=== PATIENT | male | born 1960 | race American Indian/Alaskan Native ===

== ENCOUNTER 2017-11-04 11:39 | Inpatient (IN) | payer MEDICAID ==
[2017-11-04 11:39] VITALS: BMI 38.9
--- NOTE | 2017-11-04 12:28 | C.PDOC ---
History Of Present Illness 57 year old male presents to the ER as a prescreen for heroin detox. Denies any physical complaints at this time. Time Seen by Provider: 11/04/17 12:13 Chief Complaint (Nursing): Substance Abuse History Per: Patient History/Exam Limitations: no limitations Suicide/Self Injury Attempted (Context): None Modifying Factor(s): Other (Heroin) Associated Symptoms: denies: Depression, Suicidal Thoughts Involuntary Hold By: None Recent travel outside of the [place]: No Past Medical History Reviewed: Historical Data, Nursing Documentation, Vital Signs Vital Signs: Last Vital Signs Temp 98.1 F 11/04/17 11:51 Pulse 81 11/04/17 11:51 Resp 18 11/04/17 11:51 BP 164/100 H 11/04/17 11:51 Pulse Ox 97 11/04/17 13:41 - Medical History PMH: HTN Family History: States: Unknown Family Hx - Social History Hx Alcohol Use: No Hx Substance Use: Yes - Immunization History Hx Tetanus Toxoid Vaccination: No Hx Influenza Vaccination: Yes (2017) Hx Pneumococcal Vaccination: No Review Of Systems Except As Marked, All Systems Reviewed And Found Negative. Physical Exam - Physical Exam Additional Physical Exam Comments: Constitutional: No acute distress. Head: Normocephalic. Atraumatic. Eyes: PERRL. ENT: Moist mucous membranes. Neck: Supple. Cardiovascular: Regular rate. Radial pulse 2+ bilaterally. Chest: No tenderness. Respiratory: Clear to auscultation bilaterally. GI: Soft. Nontender. Nondistended. Back: No CVA tenderness. Musculoskeletal: No tenderness or swelling of extremities. Skin: No rash. Neurologic: Alert, no focal deficit. ED Course And Treatment - Laboratory Results Result Diagrams: 11/04/17 13:02 11/04/17 13:02 O2 Sat by Pulse Oximetry: 97 (Room air) Pulse Ox Interpretation: Normal Disposition - Disposition Disposition: HOSPITALIZED Disposition Time: 13:41 Condition: STABLE Forms: [facility] (Malawian) - Clinical Impression Clinical Impression: Opioid use disorder, severe, dependence - Scribe Statement The provider has reviewed the documentation as recorded by the Scribe Alton Gomez All medical record entries made by the Scribe were at my direction and personally dictated by me. I have reviewed the chart and agree that the record accurately reflects my personal performance of the history, physical exam, medical decision making, and the department course for this patient. I have also personally directed, reviewed, and agree with the discharge instructions and disposition.
[2017-11-04 13:22] LABS: BASO # 0.1 K/uL (0.0-0.2); BASO % 1.1 % (0.0-2.0); EOS % 0.7 % (0.0-4.0); HEMOGLOBIN 13.4 g/dL (12.0-18.0); LYMPH # 1.3 K/uL (1.0-4.3); LYMPH % 19.4 % (20.0-40.0); MEAN CELL VOLUME 92.1 fL (80.0-94.0); MEAN CORPUSCULAR HEMOGLOBIN 30.2 pg (27.0-31.0); MEAN CORPUSCULAR HGB CONC 32.8 g/dL (33.0-37.0); MEAN PLATELET VOLUME 9.1 fL (7.2-11.7); MONO # 0.3 K/uL (0.0-0.8); NEUT # 4.9 K/uL (1.8-7.0); NEUT % 73.8 % (50.0-75.0); NRBC % 0.1 % (0.0-2.0); RBC 4.42 Mil/uL (4.40-5.90); RED CELL DISTRIBUTION WIDTH 14.2 % (11.5-14.5); URINE BILIRUBIN NEGATIVE (NEGATIVE); URINE BLOOD NEGATIVE (NEGATIVE); URINE CLARITY Clear (Clear); URINE COLOR Yellow (YELLOW); URINE GLUCOSE (UA) 3+ mg/dL (Normal); URINE LEUKOCYTE ESTERASE NEG Leu/uL (Negative); URINE PROTEIN 1+ mg/dL (NEGATIVE); URINE UROBILINOGEN NORMAL mg/dL (0.2-1.0); WHITE BLOOD COUNT 6.6 K/uL (4.8-10.8)
[2017-11-04 13:31] LABS: ALB/GLOB RATIO 0.9 (1.0-2.1); ALT/SGPT 27 U/L (21-72); AST/SGOT 25 U/L (17-59); BLOOD UREA NITROGEN 17 mg/dL (9-20); CALCIUM 8.5 mg/dl (8.6-10.4); GFR AFRICAN-AMERICAN > 60; GFR NON-AFRICAN AMERICAN > 60
[2017-11-04 13:40] LABS: BARBITURATES, UR NEGATIVE (NEGATIVE); BENZODIAZEPINES, UR NEGATIVE (NEGATIVE); PHENCYCLIDINE, UR NEGATIVE (NEGATIVE)
[2017-11-04 13:46] LABS: OPIATES, UR POSITIVE (NEGATIVE)
[2017-11-04] MEDS ORDERED: Bacitracin 500 Units/gm Oint Foilpak UD ONE (14:17)
[2017-11-04] MEDS ORDERED: Buprenorphine Hydrochloride 2 mg SL ONE ×3 (20:00→22:46)
--- NOTE | 2017-11-04 22:35 | PCM.BM ---
<Shannon Flowers - Last Filed: 11/04/17 22:34> Treatment Plan Problems - Problems identified on initial assessmt Opiate Dependence Date Initiated: 11/04/17 Time Initiated: 16:00 Assessment reference: NA Status: Active Treatment assets and liabiliti Patient Assests: ADL independent Patient Liabilities: substance abuse, medical problems - Milieu Protocol Maintain good personal hygiene: daily Encourage regular showers, daily Remind patient to perform daily oral care, daily Assist patient to perform ADL's Maintain personal safety: every shift Educate patient to report safety concerns to staff, every shift Monitor environment for contraband/sharps Medication safety: Monitor for expected outcome, potential side effects: every shift, Assess barriers to learning: every shift, Assess readiness for medication education: every shift <Mel Baker - Last Filed: 11/05/17 12:22> Family Contact Family involvement: Famliy/SO not involved - Goals for Treatment Patient goals for treatment: Complete detox and transition to outpatient. Discharge/Continuing Care - Education Needs Education Needs: Patient Medication, Patient Diagnosis/Disease Process, Patient Coping Skills, Patient Anger Management skills, Patient Placement options, Patient Community resources - Discharge Discharge Criteria: No longer exhibiting s/s of withdrawal, Reduction of target symptoms, Other - Treatment Team Participation Patient/Family/SO Statement: 11/05/17 12:27 "I'll do outpatient yecenia that's what drug court wants me to do..." Discussed with Family/SO: No Was Patient/Family/SO present at Treatment Team Meeting: Yes <Ilana Armendariz - Last Filed: 11/05/17 14:14> - Diagnosis (1) Opioid use disorder, severe, dependence Status: Acute Interventions: 11/05/17 14:14 * Assess 7x/week regarding severity of withdrawal * Educate regarding risks, benefits, side effects and alternatives of medications * Use Motivational Interviewing for abstinence * Use CBT for relapse prevention * Medication management for withdrawal symptoms * Encourage medication assisted treatment *
[2017-11-05] MEDS: Buprenorphine Hydrochloride 2 mg SL SCH (10:47)
--- NOTE | 2017-11-05 13:00 | PCM.PSYCH ---
Initial Psychiatric Evaluation - Initial Psychiatric Evaluation Type of Admission: Voluntary Legal Status: Capacity Chief Complaint (in patient's own words): "Not doing well" History of Present Illness and Precipitating Events: The patient is seen, chart reviewed and case discussed. 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 The patient is using heroin up to 10 bags a day intranasally. He denies all other drugs and alcohol. He was in detox once in [facility]. No methadone program or rehabilitation. He has withdrawal symptoms already. he is mandated by drug court to get tx. Past psych history: Denies Family psych history: Denies Medical history: Hypertension. He was noncompliant with the medications. he also has diabetes and obesity Current Medications: Active Medications Generic Name Dose Route Start Last Admin Trade Name Freq PRN Reason Stop Dose Admin Amlodipine Besylate 5 mg 11/05/17 10:00 11/05/17 09:24 Norvasc PO 5 mg DAILY ROMAN Administration Buprenorphine HCl 8 mg 11/05/17 10:00 11/05/17 10:47 Subutex SL 11/10/17 09:59 8 mg DAILY ROMAN Administration Taper Clonidine HCl 0.1 mg 11/04/17 20:28 11/05/17 10:15 Catapres PO 0.1 mg Q8 PRN Administration opiate withdrawal Hydroxyzine HCl 50 mg 11/04/17 18:55 Atarax PO Q6H PRN Anxiety Ibuprofen 600 mg 11/04/17 18:55 Motrin Tab PO Q6H PRN Pain, moderate (4-7) Lisinopril 10 mg 11/04/17 20:00 11/05/17 09:14 Zestril PO Not Given DAILY ROMAN Metformin HCl 500 mg 11/04/17 19:00 11/05/17 08:41 Glucophage PO 500 mg BIDCC ROMAN Administration Tamsulosin HCl 0.4 mg 11/05/17 10:00 11/05/17 09:24 Flomax PO Not Given DAILY ROMAN Trazodone HCl 100 mg 11/04/17 22:00 Desyrel PO HS PRN Insomnia Past Psychiatric History - Past Psychiatric History Previous Treatment History: None Pertinent Medical Hx (Current Medical&Sleep Prob, Allergies): Allergies Allergy/AdvReac Type Severity Reaction Status Date / Time No Known Allergies Allergy Verified 11/04/17 11:51 Lisinopril PO DAILY 09/15/16 Metformin. PO BID 09/15/16 Norvasc PO DAILY 09/15/16 hydroCHLOROthiazide [Microzide] 12.5 mg PO DAILY #14 cap 09/15/16 Review of Systems - Psychiatric Psychiatric: Abnormal Sleep Pattern, Anxiety, Change in Appetite, Difficulty Concentrating. absent: Hallucinations, Homicidal Ideation, Hopelessness, Paranoia, Suicidal Ideation Mental Status Examination - Personal Presentation Personal Presentation: Looks older than stated age - Affect Affect: Constricted - Motor Activity Motor Activity: Calm - Reliability in Providing Information Reliability in Providing Information: Fair - Speech Speech: Organized - Mood Mood: Depressed, Anxious - Formal Thought Process Formal Thought Process: No Impairment - Cognitive Functions Orientation: Person, Place, Situation, Time Sensorium: Drowsy Attention/Concentration: Easily distracted Abstract Thinking: [place] Estimate of Intelligence: Below average Judgement: Intact, as evidence by: Insight regarding need for hospitalization Memory: Recent intact, as evidence by: Ability to recall events of the day, Remote impaired as evidenced by: Inability to recall sig life events - Risk Risk: Withdrawal, Diminished functioning - Strength & Assets Inventory Strength & Assets Inventory: Cooperative - Limitations Limitations: Living alone, Other DSM 5 DX - DSM 5 DSM 5 Diagnosis: Opioid withdrawal Opioid use disorder, severe - Recommended/Plan of Treatment Treatment Recommendations and Plan of Treatment: Taper with methadone Gabapentin for augmentation if needed As needed medications All risks, benefits and alternatives of the meds discussed, and the pt agreed and understood. Attend groups and activities Supportive therapy and psychoeducation [place] for abstinence CBT for relapse prevention Encourage MAT Refer to rehab or IOP, and self-help groups Smoking cessation with [place] Nicotine patch if needed 34 min Projected ELOS: 4-5 days Prognosis: good w treatment
[2017-11-06] MEDS: Buprenorphine Hydrochloride 2 mg SL SCH (10:30)
--- NOTE | 2017-11-06 13:25 | PCM.PYCHPN ---
Psychiatric Progress Note - Psychiatric Progress Note Patient seen today, length of contact: 17 min Patient Chief Complaint: "So so" Problems Identified/Issues Discussed: The pt is seen, chart reviewed, case discussed with staff. The pt is compliant with medications and reports no side-effects. Symptoms are improving but needs more time to stabilize. After care discussed, support and psychoeducation given. Medication Change: Yes (detox changes daily) Medical Record Reviewed: Yes Mental Status Examination - Cognitive Function Orientation: Person, Place, Situation, Time Memory: Impaired Attention: Poor Concentration: Poor Association: WNL Fund of Knowledge: Poor - Mood Mood: Depressed, Anxious - Affect Affect: Constricted - Speech Speech: Appropriate - Formal Thought Process Formal Thought Process: No Impairment - Suicidal Ideation Suicidal Ideation: No - Homicidal Ideation Homicidal Ideation: No Goal/Treatment Plan - Goal/Treatment Plan Need for Continued Stay: Discharge may exacerbated symptoms, Severe functional impairment Progress Toward Problem(s) and Goals/Treatment Plan: Taper with methadone Gabapentin for augmentation if needed As needed medications All risks, benefits and alternatives of the meds discussed, and the pt agreed and understood. Attend groups and activities Supportive therapy and psychoeducation [place] for abstinence CBT for relapse prevention Encourage MAT Refer to rehab or IOP, and self-help groups Smoking cessation with [place] Nicotine patch if needed
[2017-11-07] MEDS: Buprenorphine Hydrochloride 2 mg SL SCH (09:46)
[2017-11-07] MEDS: Vitamins A & D Oint UD Foilpak TOP PRN (19:42)
[2017-11-08] MEDS: Vitamins A & D Oint UD Foilpak TOP PRN (09:59)
[2017-11-08] MEDS: Buprenorphine Hydrochloride 2 mg SL SCH (09:59)
--- NOTE | 2017-11-08 21:30 | PCM.PYCHPN ---
Psychiatric Progress Note - Psychiatric Progress Note Patient seen today, length of contact: 15 min Patient Chief Complaint: "Better" Problems Identified/Issues Discussed: The pt is seen, chart reviewed, case discussed with staff. Support given, CBT and [place] used briefly No new symptoms reported, improving slowly and needs more time No SEs from medications, risks discussed. After care discussed Medication Change: Yes (detox changes daily) Medical Record Reviewed: Yes Mental Status Examination - Cognitive Function Orientation: Person, Place, Situation, Time Memory: Impaired Attention: Poor Concentration: Poor Association: WNL Fund of Knowledge: Poor - Mood Mood: Depressed, Anxious - Affect Affect: Constricted - Speech Speech: Appropriate - Formal Thought Process Formal Thought Process: No Impairment - Suicidal Ideation Suicidal Ideation: No - Homicidal Ideation Homicidal Ideation: No Goal/Treatment Plan - Goal/Treatment Plan Need for Continued Stay: Discharge may exacerbated symptoms, Severe functional impairment Progress Toward Problem(s) and Goals/Treatment Plan: Taper with methadone Gabapentin for augmentation if needed As needed medications All risks, benefits and alternatives of the meds discussed, and the pt agreed and understood. Attend groups and activities Supportive therapy and psychoeducation [place] for abstinence CBT for relapse prevention Encourage MAT Refer to rehab or IOP, and self-help groups Smoking cessation with [place] Nicotine patch if needed
[2017-11-08 22:36] VITALS: RESP 18; O2SAT 98
--- NOTE | 2017-11-09 06:21 | PCM.PYCHPN ---
Psychiatric Progress Note - Psychiatric Progress Note Patient seen today, length of contact: 15 min Patient Chief Complaint: "I need a note for my PO" Problems Identified/Issues Discussed: The pt is seen, chart reviewed, case discussed with staff. The pt is compliant with medications and reports no side-effects. Symptoms are improving but needs more time to stabilize. After care discussed, support and psychoeducation given. Medication Change: Yes (detox changes daily) Medical Record Reviewed: Yes Mental Status Examination - Cognitive Function Orientation: Person, Place, Situation, Time Memory: Impaired Attention: Poor Concentration: Poor Association: WNL Fund of Knowledge: Poor - Mood Mood: Depressed, Anxious - Affect Affect: Constricted - Speech Speech: Appropriate - Formal Thought Process Formal Thought Process: No Impairment - Suicidal Ideation Suicidal Ideation: No - Homicidal Ideation Homicidal Ideation: No Goal/Treatment Plan - Goal/Treatment Plan Need for Continued Stay: Discharge may exacerbated symptoms, Severe functional impairment Progress Toward Problem(s) and Goals/Treatment Plan: Taper with methadone Gabapentin for augmentation if needed As needed medications All risks, benefits and alternatives of the meds discussed, and the pt agreed and understood. Attend groups and activities Supportive therapy and psychoeducation [place] for abstinence CBT for relapse prevention Encourage MAT Refer to rehab or IOP, and self-help groups Smoking cessation with [place] Nicotine patch if needed
--- NOTE | 2017-11-09 08:46 | PCM.PYCHDC ---
Mental Status Examination - Mental Status Examination Orientation: Person, Place, Situation, Time Memory: Intact Mood: Anxious Affect: Constricted Speech: Appropriate Attention: WNL Concentration: Poor Association: WNL Fund of Knowledge: WNL Formal Thought Process: No Impairment Suicidal Ideation: No Current Homicidal Ideation?: No Discharge Summary - Discharge Note Reason for Hospitalization: Opioid detox Laboratory Data: Abnormal Lab Results 11/09/17 08:01 POC Glucose (mg/dL) 332 H Consultations:: List each consultation separately and include: 1. Reason for request. 2. Findings. 3. Follow-up Summary of Hospital Course include:: 1. Description of specific treatment plan utilized for patients during their course of treatmen. 2. Summarize the time- course for resolution of acute symptoms and/or regressed behaviors. 3. Describe issues identified and worked on during hospitalization. 4. Describe medication utilized. 5. Describe medical problems identified and treated. 6. Reassessment of suicide risk Summary of Hospital Course: The patient is seen, chart reviewed and case discussed. 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 The patient is using heroin up to 10 bags a day intranasally. He denies all other drugs and alcohol. He was in detox once in [facility]. No methadone program or rehabilitation. He has withdrawal symptoms already. he is mandated by drug court to get tx. Past psych history: Denies Family psych history: Denies Medical history: Hypertension. He was noncompliant with the medications. he also has diabetes and obesity Hospital course: The pt was admitted and started on treatment with psychotherapy, support, psychoeducation and medications. ID and CBT used. The pt attended groups and activities, as well as milieu therapy. All the risks and benefits of medications are discussed and the patient understood and agreed. The pt improved with the treatments provided. After care discussed with the patient. He will attend [facility] and consider Vivitrol shot. - Final Diagnosis (DSM 5) Condition upon Discharge: IMPROVED DSM 5: Opioid withdrawal Opioid use disorder, severe Disposition: HOME/ ROUTINE Follow-up Treatment Plan: Continue below medications after discharge. Follow after care plan as discussed. Use relapse prevention skills Return to ER or call 911 if suicidal, homicidal or symptoms relapse. Stay away from stress, alcohol and drugs. See primary doctor regularly and get labs. Prescriptions/Medication Reconciliation: amLODIPine [Norvasc] 5 mg PO DAILY #30 tab hydrOXYzine HCl [Atarax] 50 mg PO BID PRN #60 tab PRN Reason: Anxiety Lisinopril [Zestril] 10 mg PO DAILY #30 tab metFORMIN [glucOPHAGE] 500 mg PO BIDCC #60 tab Tamsulosin [Flomax] 0.4 mg PO DAILY #30 cap traZODone [Desyrel] 100 mg PO HS PRN #30 tab PRN Reason: Insomnia - Smoking Cessation Smoking Cessation Medication prescribed: No - Antipsychotic Medications Pt discharged on 2 or more routine antipsychotic medications: No
[2017-11-09] MEDS: Buprenorphine Hydrochloride 2 mg SL SCH (08:59)
[2017-11-09 10:02] VITALS: BP 160/83; PULSE 77; TEMP 98.1
== END 2017-11-09 11:15 | disposition home or self-care (01) | DRG 745 ==
LOC: C.ER 11:39 → C.7D 14:06
PROVIDERS: ADMIT Psychiatry & Neurology Psychiatry; ATTEND Psychiatry & Neurology Psychiatry
PROC: HZ2ZZZZ Detoxification Services for Substance Abuse Treatment (ICD-10-PCS; principal; 2017-11-04)
PROC: HZ59ZZZ Individual Psychotherapy for Substance Abuse Treatment, Supportive (ICD-10-PCS; 2017-11-04)
PROC: HZ81ZZZ Medication Management for Substance Abuse Treatment, Methadone Maintenance (ICD-10-PCS; 2017-11-04)
PROC: HZ46ZZZ Group Counseling for Substance Abuse Treatment, Psychoeducation (ICD-10-PCS; 2017-11-04)
DX: F11.23 Opioid dependence with withdrawal (principal); E11.9 Type 2 diabetes mellitus without complications; I10 Essential (primary) hypertension; Z91.14 Patient's other noncompliance with medication regimen; E66.9 Obesity, unspecified